=== PATIENT | male | born 1955 | race Caucasian/White ===

== ENCOUNTER → 2023-05-04 | Day surgery (SDC) | payer MEDICARE, BC ==
[~2023-05-04] VITALS: Ht 177.8 cm; Wt 77.0 kg
[~2023-05-04] MED LIST: ACETAMINOPHEN 325MG TABLET PO PRN; ASPI-1497 MT; ASPIRIN/SOD BICARB/CITRIC ACID 324MG TAB EFF ONE; ATOR10TA MT; DUTA0.5C2 MT; ESCI10TA MT; FENTANYL CITRATE/PF 50MCG/ML 2ML VIAL ONE; HEPARIN 1000 UNITS/ML 10ML ONE; IODIXANOL 320MG/ML 100 ML BOTTLE IV ONE; LIDOCAINE HCL/PF 1% 10 MG/ML 5ML VIAL ONE; MIDAZOLAM HCL 2 MG/2 ML VIAL ONE; MORPHINE SULFATE 2 MG/ML CPJ (NOT FOR IM USE) IV PRN; NALOXONE HCL 0.4MG/ML VIAL IV PRN; NICARDIPINE 100MCG/ML 10ML VIAL (CATH LAB) IV ONE; NITROGLYCERIN 50MCG/ML 10ML VIAL (CATH LAB) IV ONE; ONDANSETRON HCL 4MG/2ML INJ IV PRN; RISP1 PO; URO10 MT
== END | disposition home or self-care (01) ==
LOC: CCL 07:19
PROVIDERS: ATTEND Specialist
DX: I25.10 Atherosclerotic heart disease of native coronary artery without angina pectoris (principal); I10 Essential (primary) hypertension; E78.5 Hyperlipidemia, unspecified; Z79.82 Long term (current) use of aspirin; Z79.899 Other long term (current) drug therapy; Z98.890 Other specified postprocedural states; Z82.49 Family history of ischemic heart disease and other diseases of the circulatory system
CPT/HCPCS: 93458; J3010; Q9967; J1644 ×2; J3490 ×3; J2250; Z7610 ×8

== ENCOUNTER 2025-10-04 15:00 | Emergency (ER) | payer MEDICARE, BC ==
[~2025-10-04] VITALS: Ht 180.3 cm; Wt 75.0 kg
[~2025-10-04 15:00] MED LIST changes: -ACETAMINOPHEN 325MG TABLET PO PRN; -ASPIRIN/SOD BICARB/CITRIC ACID 324MG TAB EFF ONE; -FENTANYL CITRATE/PF 50MCG/ML 2ML VIAL ONE; -HEPARIN 1000 UNITS/ML 10ML ONE; -IODIXANOL 320MG/ML 100 ML BOTTLE IV ONE; -LIDOCAINE HCL/PF 1% 10 MG/ML 5ML VIAL ONE; -MIDAZOLAM HCL 2 MG/2 ML VIAL ONE; -MORPHINE SULFATE 2 MG/ML CPJ (NOT FOR IM USE) IV PRN; -NALOXONE HCL 0.4MG/ML VIAL IV PRN; -NICARDIPINE 100MCG/ML 10ML VIAL (CATH LAB) IV ONE; -NITROGLYCERIN 50MCG/ML 10ML VIAL (CATH LAB) IV ONE; -ONDANSETRON HCL 4MG/2ML INJ IV PRN
[2025-10-04 15:01] VITALS: O2SAT 100
[2025-10-04 16:09] LABS: BASOPHILS % 0.5 % (0.0-2.0); EOSINOPHILS % 0.6 % (0.0-5.0); HEMATOCRIT. 41.8 % (42.0-52.0); HEMOGLOBIN. 13.8 g/dL (14.0-18.0); LYMPHOCYTES % 28.0 % (20.0-50.0); MEAN PLATELET VOLUME 7.4 fl (7.4-10.4); MONOCYTES % 9.9 % (2.0-8.0); NEUTROPHILS % 61.0 % (40.0-76.0); PLATELET 237 x1000/uL (130-400); RED BLOOD CELL COUNT 4.39 mill/uL (4.7-6.1); RED CELL DISTRIBUTION WIDTH 13.7 % (11.6-14.6)
[2025-10-04 16:18] LABS: INR 1.0
[2025-10-04 16:23] LABS: CREATININE 0.8 mg/dL (0.6-1.3)
[2025-10-04 16:24] LABS: PROTEIN TOTAL 6.5 g/dL (6.0-8.3); TROPONIN I HIGH SENSITIVITY 5 ng/L (3.0-53); UREA NITROGEN BLOOD 9 mg/dL (9-23)
[2025-10-04 16:25] LABS: ASPARTATE AMINOTRANSFERASE 71 IU/L (<34)
[2025-10-04 16:26] LABS: BILIRUBIN DIRECT 0.2 mg/dL (<=3.0); BILIRUBIN TOTAL 0.6 mg/dL (0.1-1.0)
[2025-10-04 17:31] VITALS: BP 165/84; PULSE 60; RESP 17; TEMP 36.8; O2SAT 98
== END 2025-10-04 18:11 | disposition home or self-care (01) ==
LOC: ER 15:00 → CANBEDREQ 18:03 → ER 18:11
DX: R07.89 Other chest pain (principal); E78.5 Hyperlipidemia, unspecified; F32.A Depression, unspecified; F41.9 Anxiety disorder, unspecified; R06.02 Shortness of breath; Z79.82 Long term (current) use of aspirin; Z79.899 Other long term (current) drug therapy; Z90.49 Acquired absence of other specified parts of digestive tract; Z90.79 Acquired absence of other genital organ(s); Z95.0 Presence of cardiac pacemaker
CPT/HCPCS: 36415; 71045; 80048; 80076; 83880; 84484; 85025; 93005; 99285